=== PATIENT | male | born 1965 | race Two or more races ===

== ENCOUNTER 2022-09-14 13:50 | Emergency (ER) | payer SELFPAY ==
[~2022-09-14] VITALS: Ht 172.7 cm; Wt 112.2 kg
[2022-09-14 14:50] LABS: Urine Bacteria NONE SEEN /hpf (None Seen); Urine Blood TRACE /uL (Negative); Urine Mucus FEW (None Seen); Urine Specific Gravity 1.026 (1.001-1.035); Urine WBC 7 /hpf (0 - 3)
[2022-09-14] MEDS ORDERED: HYDROcodone-ACET 10/325MG TAB PO ONE (15:30)
[2022-09-14 15:47] VITALS: BP 151/85
[2022-09-14] MEDS ORDERED: cefTRIAXone W LIDOCAINE 500 MG IM IM ONE (17:15)
[2022-09-14] MEDS ORDERED: DOXYCYCLINE 100 MG TAB/CAP PO ONE (17:15)
[2022-09-14] MEDS ORDERED: IBUP-1455 PO (18:03)
[2022-09-14] MEDS ORDERED: DOXY-286 PO (18:03)
== END 2022-09-14 23:25 | disposition left against medical advice (07) ==
LOC: ER 13:50
DX: N45.2 Orchitis (principal); Z79.1 Long term (current) use of non-steroidal anti-inflammatories (NSAID); Z79.2 Long term (current) use of antibiotics
CPT/HCPCS: 74176; 76870; 81001; 99284; J0696